=== PATIENT | female | born 1985 | race African-American/Black ===

== ENCOUNTER 2019-03-31 16:00 | Emergency (ER) | payer BC ==
[2019-03-31] MEDS ORDERED: Acetaminophen/oxyCODONE 325-5 MG Tab PO ONE (16:24)
--- NOTE | 2019-03-31 16:30 | EDM.PDOC ---
ED HPI GENERAL MEDICAL PROBLEM - General Chief Complaint: Lower Extremity Injury/Pain Stated Complaint: leg pain Time Seen by Provider: 03/31/19 16:06 - History of Present Illness INITIAL COMMENTS - FREE TEXT/NARRATIVE: Patient is here for sickle cell anemia and its crisis. She is having lower extremity pain. This is not about the calf. This is more about the anterior aspect and into the ankles. She does not know her family history. She is here from [facility]. She has been in the [facility] for the past 10 or 15 years and she has been here in [place] for the past 3 years. Prior to that she was in [place]. She has not had a sickle cell crisis since she was about 6 months along in her . She does have a 5-month-old at home. She says that her son has sickle cell anemia as well. She delivered her son at home with the assistance of her mother. She states that at the time of her last sickle cell crisis she is able to get through with ibuprofen and Tylenol over the course of 2 days. She comes in today by [employer] and says that the ibuprofen and Tylenol has not been helpful. She does not want any injections needles or IVs. Therefore I did give her 1 single pill of Percocet and I gave her a prescription for a dozen more. I did recommend having her set up a primary physician here in [facility] and also a [employer] recovery operator in [place]. She is going be taken the taxi home. I did look her up in the [place] pharmacy monitoring program and did not find any other references to her. Her discomfort is a 10 on a 10. I cannot re-create or worsen this by palpation. Activity does not seem to worsen this either. She understands what things may cause a crisis including stress or temperature changes. She cannot reference any recent activities that may have caused this crisis. Onset: Gradual Duration: Getting Worse Quality: Reports: Stabbing Severity: Severe Improves with: Reports: None Worsens with: Reports: None Associated Symptoms: Reports: No Other Symptoms Treatments TERRAZZO LAYER: Reports: Acetaminophen Bilateral Lower Leg Pain Score (Numeric/FACES): 10 - Related Data Allergies Allergy/AdvReac Type Severity Reaction Status Date / Time No Known Allergies Allergy Verified 03/31/19 16:12 Home Meds: Home Meds Acetaminophen [Tylenol] 650 mg PO Q4H PRN 03/31/19 [History] oxyCODONE HCl/Acetaminophen [Percocet 5-325 mg Tablet] 1 - 2 each PO Q4HR PRN # 12 tablet 03/31/19 [Rx] Past Medical History Hematologic History: Reports: Sickle Cell Anemia Social & Family History - Family History Family Medical History: Noncontributory - Tobacco Use Smoking Status *Q: Never Smoker Second Hand Smoke Exposure: No - Caffeine Use Caffeine Use: Reports: None - Recreational Drug Use Recreational Drug Use: No Review of Systems - Review of Systems Review Of Systems: Comprehensive ROS is negative, except as noted in HPI. ED EXAM, GENERAL - Physical Exam Exam: See Below Exam Limited By: No Limitations General Appearance: Alert, Mild Distress, Moderate Distress Respiratory/Chest: No Respiratory Distress, Lungs Clear, Normal Breath Sounds, No Accessory Muscle Use, Chest Non-Tender Cardiovascular: Normal Peripheral Pulses, Regular Rate, Rhythm, No Edema, No Gallop, No JVD, No Murmur, No Rub Extremities: Other (No pain about the calves. Pain is equal bilaterally about the lower extremities anterior aspects. No swelling. No pain on palpation per se.) Course - Vital Signs Last Recorded V/S: Last Vital Signs Temp 36.6 C 03/31/19 16:07 Pulse 97 03/31/19 16:07 Resp 18 03/31/19 16:07 BP 115/57 L 03/31/19 16:07 Pulse Ox 97 03/31/19 16:07 - Orders/Labs/Meds Meds: Medications Discontinued Medications Generic Name Dose Route Start Last Admin Trade Name Freq PRN Reason Stop Dose Admin Oxycodone/Acetaminophen 1 tab 03/31/19 16:24 03/31/19 16:34 Percocet 325-5 Mg PO 03/31/19 16:25 1 tab ONETIME ONE Administration Departure - Departure Time of Disposition: 16:25 Disposition: Home, Self-Care 01 Condition: Good Clinical Impression: Sickle cell anemia with crisis - Discharge Information *PRESCRIPTION DRUG MONITORING PROGRAM REVIEWED*: Yes *COPY OF PRESCRIPTION DRUG MONITORING REPORT IN PATIENT RADHA: No Prescriptions: oxyCODONE HCl/Acetaminophen [Percocet 5-325 mg Tablet] 1 - 2 each PO Q4HR PRN # 12 tablet PRN Reason: Pain Referrals: PCP,Unknown [Primary Care Provider] - Forms: ED Department Discharge Additional Instructions: The pain medication should help. The prescription is there if you need it. Locally you can see Alondra Caruso or one of her colleagues otherwise a Director Of [employer] in [place] would be another good resource. Continue to use Ibuprofen and tylenol thorughout this crisis.
== END 2019-03-31 16:40 | disposition home or self-care (01) ==
LOC: VM.ED 16:00
DX: D57.00 Hb-SS disease with crisis, unspecified (principal)
CPT/HCPCS: 99283; A9270-GY